=== PATIENT | female | born 1950 | race Caucasian/White ===

== ENCOUNTER 2022-10-31 11:03 | Outpatient (CLI) | payer MEDICARE | END 2022-10-31 11:04 | disposition home or self-care (01) | LOC: CSHRAD 11:03 | PROVIDERS: ATTEND Surgery | DX: M47.26 Other spondylosis with radiculopathy, lumbar region (principal); Z98.890 Other specified postprocedural states; S32.011D Stable burst fracture of first lumbar vertebra, subsequent encounter for fracture with routine healing; S32.039D Unspecified fracture of third lumbar vertebra, subsequent encounter for fracture with routine healing | CPT/HCPCS: 72100 ==